=== PATIENT | female | born 1970 | race Caucasian/White ===

== ENCOUNTER 2018-08-17 18:57 | Emergency (ER) | payer OTHER, MEDICAID ==
[2018-08-17 19:32] VITALS: TEMP 97.9
[2018-08-17 22:38] VITALS: BP 130/92; PULSE 76; RESP 18; O2SAT 98
== END 2018-08-17 22:30 | disposition home or self-care (01) | DRG 552 ==
LOC: ED 18:57
DX: S13.9XXA Sprain of joints and ligaments of unspecified parts of neck, initial encounter (principal)
CPT/HCPCS: 70450; 72125; 72128; 72131; 99282; 99283